=== PATIENT | female | born 1935 | race Caucasian/White ===

== ENCOUNTER → 2016-05-17 | Outpatient (CLI) | payer OTHER, BC ==
[~2016-05-17] VITALS: Ht 160 cm; Wt 62.0 kg
[~2016-05-17] MED LIST: FOSAMAX; LIPITOR20 MG PO; SYNTHROID; SYNTHROID50 MCG PO
[2016-05-17 08:10] VITALS: BP 141/73
== END | disposition home or self-care (01) ==
LOC: IVINF 05-04 15:00
DX: M81.0 Age-related osteoporosis without current pathological fracture (principal)
CPT/HCPCS: 96365; J3489